=== PATIENT | female | born 1960 | race Two or more races ===

== ENCOUNTER 2017-07-27 01:12 | Observation (INO) | payer OTHER ==
[~2017-07-27] VITALS: Ht 142.2 cm; Wt 82.3 kg
[2017-07-27] VITALS (7 sets, daily range): BP systolic 113–146; BP diastolic 41–89; Ht 142.2 cm; Wt 82.3 kg
[2017-07-27 02:50] LABS: BASOPHIL % 0.4 % (0-2); PLATELET COUNT 241 x10^3mcL (130-400)
[2017-07-27 02:58] LABS: RED CELL DISTRIBUTION WIDTH 14.9 % (11.5-14.5)
[2017-07-27 02:58] LABS: microscopic required? YES; urine erythrocyte TRACE (NEGATIVE)
[2017-07-27 03:02] LABS: CK-MB 7.8 ng/mL (0-3.6)
[2017-07-27 03:07] LABS: FREE T4 1.44 ng/dL (0.76-1.46); FREE THYROXINE INDEX 4.2 ug/dL (1.4-4.5); T4(THYROXINE) 13.1 ug/dL (4.7-13.3)
[2017-07-27 03:08] LABS: ALBUMIN 3.4 g/dL (3.4-5.0); ALKALINE PHOSPHATASE 68 U/L (46-116); ALT/SGPT 57 U/L (14-59); AST/SGOT 78 U/L (15-37); BILIRUBIN TOTAL 0.26 mg/dL (0.20-1.00); C REACTIVE PROTEIN 1.7 mg/dL (<=0.9); CALCIUM 8.6 mg/dL (8.5-10.1); CARBON DIOXIDE 29.1 mmol/L (21-32); CHLORIDE SERUM 101 mmol/L (98-107); CREATININE SERUM 0.5 mg/dL (0.6-1.0); GFR1 > 60 mL/min; GLUCOSE SERUM 158 mg/dL (74-106); SODIUM SERUM 139 mmol/L (136-145); TOTAL PROTEIN, SERUM 7.7 g/dL (6.4-8.2)
[2017-07-27 03:09] LABS: POTASSIUM SERUM 2.9 mmol/L (3.5-5.1)
[2017-07-27 03:20] LABS: T3 TOTAL 1.43 ng/mL
[2017-07-27 03:37] LABS: ERYTHROCYTE SED RATE 27 mm/hr (0-30)
[2017-07-27 03:52] LABS: AMPHETAMINE QUAL UR NONE DETECTED (NEG <=1000)
[2017-07-27 03:54] LABS: MAGNESIUM 1.7 mg/dL (1.8-2.4); PHOSPHOROUS 2.7 mg/dL (2.5-4.9)
[2017-07-27 04:00] LABS: CHOLESTEROL/HDL RATIO 3.5
[2017-07-27] MEDS ORDERED: RAMIPRIL2.5 MG PO (04:06)
[2017-07-27] MEDS ORDERED: NEXIUM40 MG PO (04:06)
[2017-07-27] MEDS ORDERED: ATIVAN0.5 M1 PO (04:07)
[2017-07-27] MEDS ORDERED: NITROSTAT0.4 MG SL (04:56)
[2017-07-28 05:34] VITALS: BP 129/66
[2017-07-28 05:50] LABS: BASOPHIL % 0.5 % (0-2); PLATELET COUNT 242 x10^3mcL (130-400)
[2017-07-28 06:18] LABS: CALCIUM 8.5 mg/dL (8.5-10.1); CARBON DIOXIDE 25.9 mmol/L (21-32); CHLORIDE SERUM 107 mmol/L (98-107); CREATININE SERUM 0.5 mg/dL (0.6-1.0); GFR1 > 60 mL/min; GLUCOSE SERUM 104 mg/dL (74-106); MAGNESIUM 1.8 mg/dL (1.8-2.4); PHOSPHOROUS 3.1 mg/dL (2.5-4.9); POTASSIUM SERUM 4.1 mmol/L (3.5-5.1); SODIUM SERUM 141 mmol/L (136-145)
[2017-07-28 08:39] VITALS: BP 129/66
[2017-07-28] MEDS ORDERED: CULTURELLE DIGE1 CAP PO (08:56)
[2017-07-28] MEDS ORDERED: LEVAQUIN750 MG PO (08:56)
[2017-07-28] MEDS ORDERED: TAM75 PO (08:58)
[2017-07-28 09:16] VITALS: BP 148/95
== END 2017-07-28 10:35 | disposition home or self-care (01) | DRG 189 ==
LOC: ED 01:12 → DU 03:20
PROVIDERS: Family Medicine; Specialist
DX: J96.00 Acute respiratory failure, unspecified whether with hypoxia or hypercapnia (principal); N39.0 Urinary tract infection, site not specified; G82.20 Paraplegia, unspecified; Z68.42 Body mass index [BMI] 45.0-49.9, adult; J11.1 Influenza due to unidentified influenza virus with other respiratory manifestations; E83.42 Hypomagnesemia; E87.6 Hypokalemia; B91 Sequelae of poliomyelitis; K21.9 Gastro-esophageal reflux disease without esophagitis; E78.2 Mixed hyperlipidemia; I10 Essential (primary) hypertension; Z99.3 Dependence on wheelchair
CPT/HCPCS: 36600; 83880; 84439; 87804; G0378; J0696; J1956; J2930; J3475; J3480; J3490; J7030; J7040; J7613; J7644

== ENCOUNTER 2017-08-05 09:37 | Emergency (ER) | payer OTHER ==
[~2017-08-05] VITALS: Ht 142.2 cm; Wt 80.3 kg
[~2017-08-05 09:37] MED LIST: ATIVAN0.5 M1 PO; CULTURELLE DIGE1 CAP PO; LEVAQUIN750 MG PO; NEXIUM40 MG PO; NITROSTAT0.4 MG SL; RAMIPRIL2.5 MG PO; TAM75 PO
[2017-08-05 09:43] VITALS: Ht 142.2 cm; Wt 80.3 kg
[2017-08-05 10:51] LABS: microscopic required? NO
[2017-08-05 11:00] LABS: BASOPHIL % 0.4 % (0-2)
[2017-08-05 11:06] LABS: PLATELET COUNT 412 x10^3mcL (130-400); RED CELL DISTRIBUTION WIDTH 14.9 % (11.5-14.5); rbc morphology (normal/abnorm) ABNORMAL (NORMAL)
[2017-08-05 11:08] LABS: CALCIUM 9.2 mg/dL (8.5-10.1); CHLORIDE SERUM 103 mmol/L (98-107); CREATININE SERUM 0.5 mg/dL (0.6-1.0); GFR1 > 60 mL/min; GLUCOSE SERUM 111 mg/dL (74-106); POTASSIUM SERUM 3.9 mmol/L (3.5-5.1); SODIUM SERUM 138 mmol/L (136-145)
[2017-08-05 11:12] LABS: ALBUMIN 3.6 g/dL (3.4-5.0); ALKALINE PHOSPHATASE 80 U/L (46-116); ALT/SGPT 58 U/L (14-59); AMYLASE 55 U/L (25-115); AST/SGOT 29 U/L (15-37); BILIRUBIN TOTAL 0.5 mg/dL (0.20-1.00); LIPASE 77 IU/L (73-393); TOTAL PROTEIN, SERUM 8.2 g/dL (6.4-8.2)
[2017-08-05 11:19] LABS: urine erythrocyte NEGATIVE (NEGATIVE)
[2017-08-05 13:04] VITALS: BP 109/61
== END 2017-08-05 13:04 | disposition home or self-care (01) ==
LOC: ED 09:37
PROVIDERS: Emergency Medicine
DX: K57.92 Diverticulitis of intestine, part unspecified, without perforation or abscess without bleeding (principal); R19.7 Diarrhea, unspecified; I10 Essential (primary) hypertension; J45.909 Unspecified asthma, uncomplicated; E78.00 Pure hypercholesterolemia, unspecified; Z90.49 Acquired absence of other specified parts of digestive tract; Z87.442 Personal history of urinary calculi
CPT/HCPCS: 83880; J7030; Q0092

== ENCOUNTER 2018-07-09 14:06 | Emergency (ER) | payer OTHER ==
[~2018-07-09] VITALS: Ht 142.2 cm; Wt 83.5 kg
[2018-07-09 15:03] VITALS: BP 134/94; Ht 142.2 cm; Wt 83.5 kg
== END 2018-07-09 16:27 | disposition home or self-care (01) ==
LOC: ED 14:06
DX: S39.012A Strain of muscle, fascia and tendon of lower back, initial encounter (principal); J45.909 Unspecified asthma, uncomplicated; E78.00 Pure hypercholesterolemia, unspecified; Z98.890 Other specified postprocedural states; Z87.442 Personal history of urinary calculi; Z88.5 Allergy status to narcotic agent; V43.62XA Car passenger injured in collision with other type car in traffic accident, initial encounter; Y93.89 Activity, other specified; Y92.488 Other paved roadways as the place of occurrence of the external cause; Y99.8 Other external cause status

== ENCOUNTER 2019-02-10 20:07 | Emergency (ER) | payer OTHER ==
[~2019-02-10] VITALS: Ht 142.2 cm; Wt 78.5 kg
[2019-02-10 20:18] VITALS: Ht 142.2 cm; Wt 78.5 kg
[2019-02-10 21:24] LABS: BASOPHIL % 0.4 % (0-2)
[2019-02-10 21:25] LABS: PLATELET COUNT 406 x10^3mcL (130-400); RED CELL DISTRIBUTION WIDTH 15.2 % (11.5-14.5)
[2019-02-10 21:35] LABS: CALCIUM 9.2 mg/dL (8.5-10.1); CARBON DIOXIDE 29.2 mmol/L (21-32); CHLORIDE SERUM 101 mmol/L (98-107); CREATININE SERUM 0.5 mg/dL (0.6-1.0); GFR1 > 60 mL/min; GLUCOSE SERUM 127 mg/dL (74-106); POTASSIUM SERUM 4.1 mmol/L (3.5-5.1); SODIUM SERUM 140 mmol/L (136-145)
[2019-02-10 21:40] LABS: ALBUMIN 3.5 g/dL (3.4-5.0); ALKALINE PHOSPHATASE 87 U/L (46-116); ALT/SGPT 34 U/L (14-59); AST/SGOT 22 U/L (15-37); BILIRUBIN TOTAL 0.48 mg/dL (0.20-1.00); LIPASE 61 IU/L (73-393)
[2019-02-10 21:42] LABS: TOTAL PROTEIN, SERUM 8.4 g/dL (6.4-8.2)
[2019-02-11 00:47] VITALS: BP 113/58
== END 2019-02-11 00:48 | disposition home or self-care (01) ==
LOC: ED 20:07
PROVIDERS: Emergency Medicine
DX: K57.92 Diverticulitis of intestine, part unspecified, without perforation or abscess without bleeding (principal); J45.909 Unspecified asthma, uncomplicated; I10 Essential (primary) hypertension; E78.00 Pure hypercholesterolemia, unspecified; Z98.890 Other specified postprocedural states; Z88.5 Allergy status to narcotic agent
CPT/HCPCS: 36415

== ENCOUNTER → 2020-03-12 | Outpatient (CLI) | payer OTHER | END | disposition home or self-care (01) | LOC: US 09:00 | PROC: BG44ZZZ Ultrasonography of Thyroid Gland (ICD-10-PCS; principal; 2020-03-12) | DX: E04.1 Nontoxic single thyroid nodule (principal) ==